=== PATIENT | female | born 1985 | race Caucasian/White ===

== ENCOUNTER 2019-04-13 03:26 | Emergency (ER) | payer OTHER ==
[~2019-04-13] VITALS: Ht 162.6 cm; Wt 72.6 kg
[2019-04-13 03:34] VITALS: Ht 162.6 cm; Wt 72.6 kg
[2019-04-13 04:46] LABS: BASOPHIL % 0.4 % (0-2); PLATELET COUNT 249 x10^3mcL (130-400); RED CELL DISTRIBUTION WIDTH 13.8 % (11.5-14.5)
[2019-04-13 04:56] LABS: CALCIUM 8.9 mg/dL (8.5-10.1); CARBON DIOXIDE 25.6 mmol/L (21-32); CHLORIDE SERUM 101 mmol/L (98-107); CREATININE SERUM 0.7 mg/dL (0.6-1.0); GFR1 > 60 mL/min; GLUCOSE SERUM 94 mg/dL (74-106); POTASSIUM SERUM 3.4 mmol/L (3.5-5.1); SODIUM SERUM 136 mmol/L (136-145)
[2019-04-13 05:00] LABS: ALKALINE PHOSPHATASE 51 U/L (46-116); ALT/SGPT 25 U/L (14-59); AST/SGOT 10 U/L (15-37); BILIRUBIN TOTAL 0.36 mg/dL (0.20-1.00); TOTAL PROTEIN, SERUM 7.3 g/dL (6.4-8.2)
[2019-04-13 05:59] VITALS: BP 127/89
[2019-04-13 07:52] LABS: microscopic required? NO
[2019-04-13 07:57] LABS: urine erythrocyte NEGATIVE (NEGATIVE)
== END 2019-04-13 05:59 | disposition home or self-care (01) ==
LOC: ED 03:26
PROVIDERS: Emergency Medicine
DX: F41.9 Anxiety disorder, unspecified (principal); F11.23 Opioid dependence with withdrawal; F17.210 Nicotine dependence, cigarettes, uncomplicated; F10.10 Alcohol abuse, uncomplicated
CPT/HCPCS: G0480; J1885; J2405; Q0092

== ENCOUNTER 2019-04-19 02:53 | Emergency (ER) | payer OTHER ==
[~2019-04-19] VITALS: Ht 162.6 cm; Wt 72.6 kg
[2019-04-19 03:03] VITALS: Ht 162.6 cm; Wt 72.6 kg
[2019-04-19 05:24] VITALS: BP 120/85
== END 2019-04-19 05:24 | disposition home or self-care (01) ==
LOC: ED 02:53
DX: F10.239 Alcohol dependence with withdrawal, unspecified (principal); F41.1 Generalized anxiety disorder; Y90.0 Blood alcohol level of less than 20 mg/100 ml